=== PATIENT | female | born 1970 | race Caucasian/White ===

== ENCOUNTER → 2017-04-18 | Outpatient (CLI) | payer OTHER ==
[~2017-04-18] MED LIST: CALC-141 PO; DIPH25CA61 PO; MULT-658 PO; SUMA100T3 PO; TEMA15CA6 PO
== END | disposition home or self-care (01) ==
LOC: CFH 12:25
PROVIDERS: ATTEND Obstetrics & Gynecology
DX: Z12.31 Encounter for screening mammogram for malignant neoplasm of breast (principal)
CPT/HCPCS: G0202

== ENCOUNTER 2019-01-21 07:47 | Outpatient (CLI) | payer OTHER | END 2019-01-21 23:59 | disposition home or self-care (01) | LOC: STAR 07:47 | PROVIDERS: ATTEND Obstetrics & Gynecology | DX: Z01.818 Encounter for other preprocedural examination (principal); N81.10 Cystocele, unspecified; Z88.0 Allergy status to penicillin | CPT/HCPCS: 36415; 81003; 85025 ==

== ENCOUNTER 2019-01-30 06:08 | Day surgery (SDC) | payer BC, OTHER ==
[~2019-01-30] VITALS: Ht 170.2 cm; Wt 77.0 kg
[~2019-01-30 06:08] MED LIST changes: +ASCO500T8 PO; +CHOL500015 PO; +EREN70AU INJ; +LACT1CAP35 PO; +TOLT1TAB14 PO
[2019-01-30] MEDS ORDERED: LACTATED RINGERS 1,000 ML IV SCH (06:17)
[2019-01-30] MEDS ORDERED: ACETAMINOPHEN 500 MG TABLET PO ONE (06:30)
[2019-01-30] MEDS ORDERED: GABAPENTIN 300 MG CAPSULE PO ONE (06:30)
[2019-01-30] MEDS ORDERED: OxyconTIN ER 10 MG TAB.ER PO ONE (06:30)
[2019-01-30 06:40] VITALS: BP 145/88
[2019-01-30] MEDS ORDERED: BUPIVACAINE/PF-EPI 0.5% 1:200K ONE (07:49)
[2019-01-30] MEDS ORDERED: EPINEPHRINE 1 MG/ML, 1ML ONE (07:49)
[2019-01-30] MEDS ORDERED: BUPIVACAINE/PF 0.25% ONE (07:49)
[2019-01-30] MEDS ORDERED: NEOMY/POLYMYXIN B GU IRR. 1 ML ONE (07:50)
[2019-01-30] MEDS ORDERED: FENTANYL PF 250 MCG/5ML ONE (07:51)
[2019-01-30] MEDS ORDERED: SUCCINYLCHOLINE 20 MG/ML, 10ML ONE (07:51)
[2019-01-30] MEDS ORDERED: PROPOFOL 10 MG/ML, 20ML ONE (07:51)
[2019-01-30] MEDS ORDERED: ROCURONIUM 10MG/ML,5ML ONE (07:51)
[2019-01-30] MEDS ORDERED: LIDOCAINE-MPF 2% ,5ML ONE (07:51)
[2019-01-30] MEDS ORDERED: DEXAMETHASONE 4 MG/ML, 1ML ONE ×2 (07:51)
[2019-01-30] MEDS ORDERED: MIDAZOLAM 1 MG/ML, 2ML ONE (07:51)
[2019-01-30] MEDS ORDERED: ONDANSETRON 2MG/ML, 2ML ONE (07:52)
[2019-01-30] MEDS ORDERED: CEFAZOLIN 1,000 MG ONE ×2 (07:52)
[2019-01-30] MEDS ORDERED: hydrALAzine 20 MG/ML, 1ML IV PRN (08:00)
[2019-01-30] MEDS ORDERED: METOCLOPRAMIDE 5 MG/ML, 2ML IV PRN (08:00)
[2019-01-30] MEDS ORDERED: FENTANYL PF 100 MCG/2ML IV PRN (08:00)
[2019-01-30] MEDS ORDERED: LORazepam 2 MG/ML, 1ML IVPush PRN (08:00)
[2019-01-30] MEDS ORDERED: MEPERIDINE/PF 25MG/0.5ML IVPush PRN (08:00)
[2019-01-30] MEDS ORDERED: OXYcodone 5 MG/5 ML ORAL.SOL UDC PO PRN (08:00)
[2019-01-30] MEDS ORDERED: ONDANSETRON 2MG/ML, 2ML IV PRN (08:00)
[2019-01-30] MEDS ORDERED: HYDROmorphone 2 MG/ML, 1ML IVPush PRN (08:00)
[2019-01-30] MEDS ORDERED: THROMBIN 5,000 UNIT VIAL TP ONE ×2 (08:36)
[2019-01-30] MEDS ORDERED: FLUORESCEIN SODIUM 500 MG/5 ML ONE (09:02)
[2019-01-30] MEDS ORDERED: OXYcodone 5 MG/5 ML ORAL.SOL UDC ONE (09:40)
[2019-01-30] MEDS ORDERED: MEPERIDINE/PF 25MG/ML,1ML ONE (09:40)
[2019-01-30] MEDS ORDERED: IBUPROFEN 600 MG TABLET ONE (11:51)
[2019-01-30] MEDS ORDERED: IBUPROFEN 600 MG TABLET PO PRN (12:00)
[2019-01-30] MEDS ORDERED: NEOSTIGMINE 1 MG/ML, 10ML ONE (15:06)
[2019-01-30] MEDS ORDERED: GLYCOPYRROLATE 0.2MG/1ML, 5ML ONE (15:06)
== END 2019-01-30 14:25 | disposition home or self-care (01) ==
LOC: OR 06:08 → MERGE 08:00 → OUT 14:25
PROVIDERS: ATTEND Obstetrics & Gynecology
DX: N81.2 Incomplete uterovaginal prolapse (principal); N39.3 Stress incontinence (female) (male); N81.89 Other female genital prolapse; Z88.0 Allergy status to penicillin; G43.909 Migraine, unspecified, not intractable, without status migrainosus; Z79.899 Other long term (current) drug therapy; Z83.3 Family history of diabetes mellitus; Z82.61 Family history of arthritis; Z82.3 Family history of stroke
CPT/HCPCS: 36415; 57260; 57288; 86850; 86900; C1771; J0171; J0330; J0690; J1100; J2175; J2250; J2405; J2704; J2710; J3010; J3490; J7120

== ENCOUNTER → 2020-05-05 | Outpatient (CLI) | payer OTHER | END | disposition home or self-care (01) | LOC: CFH 12:34 | PROVIDERS: ATTEND Obstetrics & Gynecology | DX: Z12.31 Encounter for screening mammogram for malignant neoplasm of breast (principal) | CPT/HCPCS: 76641; 77063; 77067 ==

== ENCOUNTER 2020-05-19 10:00 | Outpatient (CLI) | payer OTHER | END 2020-05-19 23:59 | disposition home or self-care (01) | LOC: CFH 10:00 | PROVIDERS: ATTEND Obstetrics & Gynecology | DX: N63.21 Unspecified lump in the left breast, upper outer quadrant (principal) | CPT/HCPCS: 76642 ==